=== PATIENT | male | born 1990 | race Caucasian/White ===

== ENCOUNTER 2020-02-28 14:41 | Emergency (ER) | payer SELFPAY ==
--- NOTE | 2020-02-28 15:42 | RAD ---
PORTABLE CHEST ONE VIEW: 02/28/20 at 3:12 p.m. HISTORY: Chest pain, hypertension. FINDINGS: The heart size is normal. The lungs are expanded without lobar consolidation, pneumothoraces or pleur al effusions. IMPRESSION: No radiographic evidence of acute cardiopulmonary process. POS: [facility]
== END 2020-02-28 16:06 | disposition home or self-care (01) ==
LOC: ERS 14:41
DX: I10 Essential (primary) hypertension (principal); F17.210 Nicotine dependence, cigarettes, uncomplicated; I49.9 Cardiac arrhythmia, unspecified
CPT/HCPCS: 71045; 93005